=== PATIENT | male | born 1995 | race African-American/Black ===

== ENCOUNTER 2017-10-10 20:10 | Emergency (ER) | payer SELFPAY ==
[~2017-10-10] VITALS: Ht 167.6 cm; Wt 81.6 kg
[2017-10-10 20:51] LABS: BILIRUBIN,URINE NEGATIVE (NEGATIVE); COLOR,URINE YELLOW (YELLOW); KETONES,URINE NEGATIVE (NEGATIVE); LEUKOCYTE ESTERASE ,URINE NEGATIVE (NEGATIVE); NITRITE,URINE NEGATIVE (NEGATIVE); PROTEIN,URINE DIPSTICK NEGATIVE (NEGATIVE); URINE UROBILINOGEN 0.2 mg/dL (0.2 - 1)
[2017-10-10 20:52] LABS: AMPHETAMINES SCREEN,URINE NEGATIVE (NEGATIVE); BENZODIAZEPINES SCREEN,URINE NEGATIVE (NEGATIVE); CLARITY,URINE SL CLOUDY (CLEAR); PHENCYCLIDINE SCREEN,URINE NEGATIVE (NEGATIVE)
[2017-10-10 21:03] LABS: RBC,URINE 0-5 /HPF (0-5)
== END 2017-10-11 | disposition left against medical advice (07) ==
LOC: ER 20:10
DX: R10.31 Right lower quadrant pain (principal)
CPT/HCPCS: 80307; 81001